=== PATIENT | male | born 1985 | race Hispanic/Latino ===

== ENCOUNTER 2017-02-02 09:47 | Emergency (ER) | payer OTHER ==
[2017-02-02] MEDS ORDERED: NORCO 5/325 PO ONE (11:35)
[2017-02-02] MEDS ORDERED: ZOFRAN ODT PO ONE (11:36)
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
[2017-02-02 14:09] VITALS: BP 126/78
== END 2017-02-02 14:08 | disposition home or self-care (01) ==
LOC: ED 09:47
DX: M54.6 Pain in thoracic spine (principal); M54.5 Low back pain; R51 Headache; M54.2 Cervicalgia; F17.210 Nicotine dependence, cigarettes, uncomplicated; F12.10 Cannabis abuse, uncomplicated; V89.2XXA Person injured in unspecified motor-vehicle accident, traffic, initial encounter; Y93.89 Activity, other specified; Y92.89 Other specified places as the place of occurrence of the external cause; Y99.8 Other external cause status
CPT/HCPCS: 70450; 71110; 72072; 72100; 72125; 99283; Q0162